=== PATIENT | female | born 1965 | race Caucasian/White ===

== ENCOUNTER → 2017-06-27 | Outpatient (CLI) | payer OTHER, MEDICAID ==
[2016-03-12 13:11] VITALS: BP 110/78
--- NOTE | 2017-06-27 12:22 | MRI ---
MRI OF THE THORACIC SPINE WITHOUT IV CONTRAST MRI OF THE LUMBAR SPINE WITHOUT IV CONTRAST CLINICAL INDICATION: Intervertebral disc disease. Mid and low back pain. TECHNIQUE: Pre-contrast sagittal T1-, T2-, and T2-w fat-saturated images, and axial T1- and T2-w imag es of the thoracic and lumbar spine. COMPARISON: None. FINDINGS: Thoracic spine: The thoracic spine demonstrates normal alignment. Vertebral bodies are normal in heig ht. There is a normal marrow signal pattern. Mild multilevel degenerative disc disease. Posterior dis c bulge worst at T7-T8 with a central protrusion resulting in moderate central stenosis without cord signal abnormality. The included paraspinal soft tissues and retroperitoneal structures are grossly n ormal. Mild neural foraminal stenosis on the left at T10-T11 secondary to left-sided facet hypertroph y. Lumbar spine: For purposes of this dictation, it is assumed that there are 5 [id number], lumbar- type vertebrae, and the most caudal fully segmented lumbar vertebra is labeled L5. The lumbar spine demonstrates normal alignment. Vertebral bodies are normal in height. There is a nor mal marrow signal pattern. Mild degenerative disc disease worst at L5-S1. The conus medullaris termin ates at a normal level and the nerve roots of the cauda equina appear normal. The included paraspinal soft tissues and retroperitoneal structures are grossly normal. Evaluation of the individual levels demonstrates: L1-2: Normal L2-3: Normal L3-4: Mild circumferential disc bulge without central stenosis. Mild right-sided neural foraminal todd nosis. L4-5: Mild circumferential disc bulge without significant central stenosis. Moderate bilateral neural foraminal stenosis. Bilateral facet signal. L5-S1: Mild disc bulge without central or foraminal stenosis. IMPRESSION: 1. Diffuse mild multilevel degenerative disc disease. Within thoracic spine this is most notable at T 7-T8 where there is a central protrusion without significant stenosis. Within the lumbar spine this i s most notable L4-5 where there is also bilateral facet signal suggesting facet arthritis. Reported By:
== END | disposition home or self-care (01) ==
LOC: RAD 09:05
PROVIDERS: ATTEND Internal Medicine
DX: M51.16 Intervertebral disc disorders with radiculopathy, lumbar region (principal); M51.34 Other intervertebral disc degeneration, thoracic region
CPT/HCPCS: 72146; 72148

== ENCOUNTER → 2017-07-19 | Outpatient (CLI) | payer OTHER, MEDICAID ==
[2016-03-12 13:11] VITALS: BP 110/78
[2017-07-19 10:20] LABS: CREATININE 0.92 mg/dL (0.55-1.02)
--- NOTE | 2017-07-19 11:28 | CT ---
CT NECK WITH IV CONTRAST CLINICAL INDICATION: Cervical lymph nodes. History of thyroid cancer. TECHNIQUE: Multiple-row detector helical CT examination of the neck with IV contrast per standard de partmental protocol.Dose reduction techniques including Automated Exposure Control (AEC) and adjustme nt of mA and kV were utlized. COMPARISON: None. FINDINGS: The aerodigestive structures are within normal limits. Specifically, the nasal cavity, nasopharynx, oral cavity, oropharynx, hypopharynx, larynx, and visualized trachea and esophagus demonstrate no mas ses or abnormal enhancement. No pathologically enlarged, necrotic, or otherwise abnormal lymph nodes. Patient's cervical lymph no leisa are normal in size and number. The parotid and submandibular glands appear within normal limits. Status post thyroidectomy. Evaluation of the visualized portions of brain parenchyma and orbits demonstrates no abnormality. The visualized paranasal sinuses are predominantly clear. The tympanomastoid cavities are unopacified. T here is normal intravascular enhancement. Limited evaluation of the lung apices demonstrates no abnormality. The visualized osseous structures are within normal limits. Following administration of intravenous contrast material, there is no abnormal enhancement. IMPRESSION: 1. No evidence of cervical lymphadenopathy or other abnormal soft tissue mass. Reported By:
== END ==
LOC: RAD 09:50
DX: R59.1 Generalized enlarged lymph nodes (principal)
CPT/HCPCS: 36415; 70491; 82565; 84520; A4222

== ENCOUNTER 2021-07-02 10:37 | Observation (INO) ==
[2021-07-02] MEDS ORDERED: ATIVAN INJ 2 MG VIAL IVP PRN (12:19)
[2021-07-02 12:42] VITALS: BMI 51.5
[2021-07-02 13:12] LABS: BASOPHILS # (AUTO) 0.1 X10^3/uL (0.0-0.1); BASOPHILS % (AUTO) 1.3 % (0.2-1.0); EOSINOPHILS # (AUTO) 0.1 x10^3/uL (0.0-0.2); EOSINOPHILS % (AUTO) 0.9 % (0.9-2.9); HEMOGLOBIN 12.7 g/dL (12.0-16.0); LYMPHOCYTES # (AUTO) 2.3 X10^3/uL (1.3-2.9); LYMPHOCYTES % (AUTO) 28.9 % (21.0-51.0); MEAN CORPUSCULAR HEMOGLOBIN 28.6 pg (27.0-34.0); MEAN CORPUSCULAR HGB CONC 32.5 g/dL (33.0-35.0); MEAN PLATELET VOLUME 7.4 fL (7.4-11.0); MONOCYTES # (AUTO) 0.6 x10^3/uL (0.3-0.8); MONOCYTES % (AUTO) 7.7 % (0.0-13.0); NEUTROPHILS # (AUTO) 4.8 x10^3/uL (2.2-4.8); NEUTROPHILS % (AUTO) 61.2 % (42.0-75.0); RED BLOOD COUNT 4.44 X10^6/uL (3.5-5.4); RED CELL DISTRIBUTION WIDTH 16.3 % (11.6-16.5); WHITE BLOOD COUNT 7.9 X10^3/uL (3.6-10.0)
[2021-07-02 13:39] LABS: ALANINE AMINOTRANSFERASE 17 Units/L (12-78); ALBUMIN 3.4 g/dL (3.4-5.0); ALKALINE PHOSPHATASE 87 Units/L (46-116); ASPARTATE AMINO TRANSFERASE 17 Units/L (15-37); BLOOD UREA NITROGEN 13 mg/dL (7-18); CALCIUM 8.5 mg/dL (8.5-10.1); CARBON DIOXIDE 29.4 mmol/L (21-32); CHLORIDE 104 mmol/L (98-107); CKMB % 0.8 % (<4); CREATINE KINASE 135 Units/L (26-192); CREATINE KINASE MB 1.1 ng/mL (0-4.0); CREATININE 0.82 mg/dL (0.55-1.02); SODIUM 140 mmol/L (136-145); TOTAL PROTEIN 7.1 g/dL (6.4-8.2); eGFR NON BLACK RACES > 60 (>60)
[2021-07-02] MEDS: NS 1,000 ML IV 1,000 ML IV SCH (13:49)
[2021-07-02] MEDS: TORADOL 30 MG VIAL IVP PRN (16:13)
[2021-07-02 16:42] LABS: BILIRUBIN,URINE NEGATIVE (NEGATIVE); BLOOD/HEMOGLOBIN,URINE NEGATIVE (NEGATIVE); GLUCOSE, URINE NEGATIVE (NEGATIVE); KETONES,URINE NEGATIVE (NEGATIVE); LEUKOCYTE ESTERASE ,URINE NEGATIVE (NEGATIVE); NITRITES,URINE NEGATIVE (NEGATIVE); PROTEIN,URINE 1+ (NEGATIVE); UROBILINOGEN,URINE NORMAL (NORMAL)
[2021-07-02 16:55] LABS: APPEARANCE,URINE CLEAR (CLEAR); COLOR,URINE YELLOW (YELLOW)
[2021-07-02 16:56] LABS: BACTERIA,URINE 1+ /HPF (NEGATIVE); RBC,URINE 0-2 /HPF (0-3); SQUAMOUS EPITHELIAL CELL,UR FEW /HPF (NEGATIVE)
--- NOTE | 2021-07-02 17:19 | MRI ---
HISTORYSLURRED SPEECH, SOB, SLEEPINESSSTUDYBRAIN W/O CONCOMPARISONCT head dated June 25, 2021.TECHNIQUEMultiplanar multi-sequence MRI of the brain was obtained utilizing standard departmental protocol. Sagittal and axial T1 weighted images were obtained. Axial T2 and flair weighted images were performed as well. Axial diffusion weighted and ADC trace mapping was performed.FINDINGSThe midline structures appear unremarkable. The evaluation of the brain parenchyma demonstrates no abnormal signal characteristics to suggest intraparenchymal mass or hemorrhage. No extra-axial fluid collections are observed. The ventricular system appears symmetric and nondilated. The CP angle is normal in its appearance without brainstem mass or evidence for acoustic neuroma. The flow voids on both T1 and T2 weighted imaging appear unremarkable. Evaluation of the diffusion weighted imaging does not demonstrate abnormal signal characteristics to suggest acute ischemic change. The extracranial structures are unremarkable.IMPRESSIONNo MRI evidence of acute intracranial pathology.Electronically signed by: ITALIA LEVIN (Jul 02, 2021 17:19:11)
[2021-07-02] MEDS: PROVENTIL NEB TX 0.083% 2.5MG/ 3ML NEB SCH ×2 (17:25→20:48)
[2021-07-02 18:43] LABS: CKMB % 0.9 % (<4); CREATINE KINASE 112 Units/L (26-192); CREATINE KINASE MB < 1.0 ng/mL (0-4.0)
[2021-07-03 00:06] LABS: CKMB % 0.9 % (<4); CREATINE KINASE 107 Units/L (26-192); CREATINE KINASE MB < 1.0 ng/mL (0-4.0)
[2021-07-03] MEDS: NS 1,000 ML IV 1,000 ML IV SCH ×2 (03:41→16:24)
[2021-07-03 05:45] LABS: BASOPHILS % (AUTO) 0.5 % (0.2-1.0); EOSINOPHILS # (AUTO) 0.1 x10^3/uL (0.0-0.2); EOSINOPHILS % (AUTO) 0.9 % (0.9-2.9); HEMOGLOBIN 12.1 g/dL (12.0-16.0); LYMPHOCYTES % (AUTO) 35.2 % (21.0-51.0); MEAN CORPUSCULAR HEMOGLOBIN 28.7 pg (27.0-34.0); MEAN CORPUSCULAR HGB CONC 32.7 g/dL (33.0-35.0); MEAN CORPUSCULAR VOLUME 87.8 fL (80.0-100.0); MEAN PLATELET VOLUME 7.3 fL (7.4-11.0); MONOCYTES # (AUTO) 0.5 x10^3/uL (0.3-0.8); MONOCYTES % (AUTO) 7.9 % (0.0-13.0); NEUTROPHILS # (AUTO) 3.2 x10^3/uL (2.2-4.8); NEUTROPHILS % (AUTO) 55.5 % (42.0-75.0); RED BLOOD COUNT 4.21 X10^6/uL (3.5-5.4); RED CELL DISTRIBUTION WIDTH 16.1 % (11.6-16.5); WHITE BLOOD COUNT 5.7 X10^3/uL (3.6-10.0)
[2021-07-03 05:47] LABS: ALANINE AMINOTRANSFERASE 14 Units/L (12-78); ALBUMIN 2.7 g/dL (3.4-5.0); ALKALINE PHOSPHATASE 74 Units/L (46-116); ASPARTATE AMINO TRANSFERASE 15 Units/L (15-37); BLOOD UREA NITROGEN 9 mg/dL (7-18); CALCIUM 7.9 mg/dL (8.5-10.1); CARBON DIOXIDE 27.8 mmol/L (21-32); CHLORIDE 107 mmol/L (98-107); COR CA(FOR HYPOALB) 8.9 mg/dL (8.5-10.1); SODIUM 142 mmol/L (136-145); eGFR NON BLACK RACES > 60 (>60)
[2021-07-03] MEDS: TORADOL 30 MG VIAL IVP PRN (07:57)
[2021-07-03] MEDS: PROVENTIL NEB TX 0.083% 2.5MG/ 3ML NEB SCH ×3 (09:25→16:50)
[2021-07-03] MEDS ORDERED: ATARAX SYRUP BTL 10MG/5ML PO PRN (11:30)
[2021-07-03] MEDS ORDERED: ULTRAM PO PRN (11:30)
[2021-07-03] MEDS ORDERED: PHENERGAN TAB 25 MG PO PRN (11:30)
--- NOTE | 2021-07-03 12:22 | RAD ---
HISTORYShortness of breathSTUDYChest AP [id number] t size is normal. Josefina are normal. Lung christensen are clear. No pleural effusions are identified. Bony thorax is unremarkable.IMPRESSIONNo significant abnormality identifiedElectronically signed by: VIKTOR BARNETT (Jul 03, 2021 12:22:17)
[2021-07-03] MEDS: CARAFATE PO SCH ×3 (13:00→21:28)
[2021-07-03] MEDS: LIORESAL PO SCH ×3 (13:00→21:29)
[2021-07-03] MEDS: REQUIP PO SCH ×2 (13:01→21:31)
[2021-07-03] MEDS: PERCOCET TAB 5/325 MG PO SCH ×2 (13:01→21:28)
[2021-07-03] MEDS: NICOTINE PATCH TD SCH (18:00)
[2021-07-03] MEDS ORDERED: REFLEX: PROVENTIL NEB & PulmiCORT NEB~ NEB SCH (21:00)
[2021-07-03] MEDS: LIPITOR TAB 40 MG PO SCH (21:29)
[2021-07-03] MEDS: PriLOSEC PO SCH (21:30)
[2021-07-03] MEDS: VALIUM PO SCH (21:30)
[2021-07-03] MEDS: DESYREL PO SCH (21:35)
[2021-07-03] MEDS: PATIENT'S HOME MEDICATION PO SCH (21:36)
[2021-07-03] MEDS: PULMICORT NEB TX 0.5 MG NEB SCH (21:38)
[2021-07-03] MEDS ORDERED: KLOR-CON PO PRN (22:34)
[2021-07-03] MEDS ORDERED: MAGNESIUM SULFATE 1 GRAM/100 mL PREMIX 1 G/100 ML BAG IV PRN (22:34)
[2021-07-03] MEDS ORDERED: POTASSIUM CHLORIDE LIQ 20 MEQ UDC PO PRN (22:34)
[2021-07-03] MEDS ORDERED: MICRO K EXTEN CAP 10 MEQ PO PRN (22:34)
[2021-07-03] MEDS ORDERED: POTASSIUM CHL 60 MEQ/NS 0.45% 500 ML IV PRN (22:34)
[2021-07-03] MEDS ORDERED: POTASSIUM CHL 40 MEQ/NS 0.45% 500 ML IV PRN (22:34)
[2021-07-04] MEDS: XOPENEX 1.25 MG/3 ML NEBULE NEB SCH ×4 (01:20→17:05)
[2021-07-04] MEDS: PERCOCET TAB 5/325 MG PO SCH ×4 (02:22→18:22)
[2021-07-04] MEDS: REQUIP PO SCH ×3 (05:28→22:00)
[2021-07-04] MEDS: CARAFATE PO SCH ×4 (05:29→20:30)
[2021-07-04] MEDS: NS 1,000 ML IV 1,000 ML IV SCH ×3 (05:29→20:29)
[2021-07-04] MEDS: SYNTHROID 150 mcg TAB PO SCH (06:38)
[2021-07-04 06:51] LABS: BASOPHILS % (AUTO) 0.7 % (0.2-1.0); EOSINOPHILS # (AUTO) 0.1 x10^3/uL (0.0-0.2); EOSINOPHILS % (AUTO) 1.3 % (0.9-2.9); HEMATOCRIT 37.5 % (36.0-47.0); LYMPHOCYTES # (AUTO) 1.9 X10^3/uL (1.3-2.9); LYMPHOCYTES % (AUTO) 35.4 % (21.0-51.0); MEAN CORPUSCULAR HEMOGLOBIN 28.3 pg (27.0-34.0); MEAN CORPUSCULAR HGB CONC 32.1 g/dL (33.0-35.0); MEAN PLATELET VOLUME 7.6 fL (7.4-11.0); MONOCYTES # (AUTO) 0.5 x10^3/uL (0.3-0.8); MONOCYTES % (AUTO) 8.8 % (0.0-13.0); NEUTROPHILS # (AUTO) 2.9 x10^3/uL (2.2-4.8); NEUTROPHILS % (AUTO) 53.8 % (42.0-75.0); RED BLOOD COUNT 4.26 X10^6/uL (3.5-5.4); RED CELL DISTRIBUTION WIDTH 15.7 % (11.6-16.5); WHITE BLOOD COUNT 5.5 X10^3/uL (3.6-10.0)
[2021-07-04 06:57] LABS: ALANINE AMINOTRANSFERASE 13 Units/L (12-78); ALBUMIN 2.7 g/dL (3.4-5.0); ALKALINE PHOSPHATASE 72 Units/L (46-116); ASPARTATE AMINO TRANSFERASE 12 Units/L (15-37); BLOOD UREA NITROGEN 4 mg/dL (7-18); CALCIUM 7.9 mg/dL (8.5-10.1); CARBON DIOXIDE 30.3 mmol/L (21-32); CHLORIDE 111 mmol/L (98-107); COR CA(FOR HYPOALB) 8.9 mg/dL (8.5-10.1); CREATININE 0.62 mg/dL (0.55-1.02); SODIUM 146 mmol/L (136-145); eGFR NON BLACK RACES > 60 (>60)
[2021-07-04] MEDS: PULMICORT NEB TX 0.5 MG NEB SCH ×2 (08:05→20:45)
[2021-07-04] MEDS: DEMADEX PO SCH (09:12)
[2021-07-04] MEDS: FOLIC ACID TAB 1 MG PO SCH (09:13)
[2021-07-04] MEDS: K-DUR TAB 20 MEQ PO SCH (09:13)
[2021-07-04] MEDS: HYDROCHLOROTHIAZIDE 25 MG TAB PO SCH (09:13)
[2021-07-04] MEDS: NICOTINE PATCH TD SCH (09:14)
[2021-07-04] MEDS: LINZESS PO SCH (09:14)
[2021-07-04] MEDS: SINGULAIR TAB 10 MG PO SCH (09:15)
[2021-07-04] MEDS: PriLOSEC PO SCH ×2 (09:15→20:29)
[2021-07-04] MEDS: TOPROL XL PO SCH (09:15)
[2021-07-04] MEDS: PATIENT'S HOME MEDICATION PO SCH ×7 (09:15→20:33)
[2021-07-04] MEDS: LIORESAL PO SCH ×4 (09:16→20:31)
[2021-07-04] MEDS: ZyrTEC TAB 10 MG PO SCH (09:16)
[2021-07-04] MEDS: VALIUM PO SCH ×2 (09:16→20:32)
[2021-07-04] MEDS: VASOTEC TAB 10 MG PO SCH (09:16)
[2021-07-04] MEDS: ESTRACE PO SCH (09:17)
[2021-07-04] MEDS: K-RIDER 10 MEQ/NS 100 ML 10 MEQ/100 ML BAG IV PRN (09:19)
[2021-07-04] MEDS: K-DUR TAB 20 MEQ PO PRN ×2 (09:19→20:32)
[2021-07-04] MEDS ORDERED: PATIENT'S HOME MEDICATION PO PRN (09:50)
[2021-07-04] MEDS ORDERED: IMODIUM CAP 2 MG PO PRN (14:02)
[2021-07-04] MEDS: DESYREL PO SCH ×2 (20:30→21:00)
[2021-07-04] MEDS: LIPITOR TAB 40 MG PO SCH (20:31)
[2021-07-05] MEDS: XOPENEX 1.25 MG/3 ML NEBULE NEB SCH ×4 (00:57→18:30)
[2021-07-05] MEDS: PERCOCET TAB 5/325 MG PO SCH ×4 (03:08→18:03)
[2021-07-05] MEDS: REQUIP PO SCH ×3 (05:46→22:15)
[2021-07-05] MEDS: CARAFATE PO SCH ×4 (05:46→20:28)
[2021-07-05] MEDS: SYNTHROID 150 mcg TAB PO SCH (05:47)
[2021-07-05 06:30] LABS: BASOPHILS % (AUTO) 0.5 % (0.2-1.0); EOSINOPHILS # (AUTO) 0.1 x10^3/uL (0.0-0.2); EOSINOPHILS % (AUTO) 1.6 % (0.9-2.9); HEMATOCRIT 39.9 % (36.0-47.0); LYMPHOCYTES # (AUTO) 2.2 X10^3/uL (1.3-2.9); LYMPHOCYTES % (AUTO) 31.6 % (21.0-51.0); MEAN CORPUSCULAR HEMOGLOBIN 28.8 pg (27.0-34.0); MEAN CORPUSCULAR HGB CONC 32.7 g/dL (33.0-35.0); MEAN PLATELET VOLUME 7.3 fL (7.4-11.0); MONOCYTES # (AUTO) 0.6 x10^3/uL (0.3-0.8); MONOCYTES % (AUTO) 8.9 % (0.0-13.0); NEUTROPHILS # (AUTO) 4.1 x10^3/uL (2.2-4.8); NEUTROPHILS % (AUTO) 57.4 % (42.0-75.0); RED BLOOD COUNT 4.54 X10^6/uL (3.5-5.4); RED CELL DISTRIBUTION WIDTH 16.1 % (11.6-16.5); WHITE BLOOD COUNT 7.1 X10^3/uL (3.6-10.0)
[2021-07-05 06:45] LABS: ALANINE AMINOTRANSFERASE 16 Units/L (12-78); ALBUMIN 3.1 g/dL (3.4-5.0); ALKALINE PHOSPHATASE 82 Units/L (46-116); ASPARTATE AMINO TRANSFERASE 13 Units/L (15-37); BLOOD UREA NITROGEN 9 mg/dL (7-18); CALCIUM 8.8 mg/dL (8.5-10.1); CARBON DIOXIDE 32.2 mmol/L (21-32); CHLORIDE 105 mmol/L (98-107); COR CA(FOR HYPOALB) 9.5 mg/dL (8.5-10.1); SODIUM 145 mmol/L (136-145); TOTAL PROTEIN 6.9 g/dL (6.4-8.2); eGFR NON BLACK RACES > 60 (>60)
[2021-07-05] MEDS: DEMADEX PO SCH (08:54)
[2021-07-05] MEDS: ESTRACE PO SCH (08:55)
[2021-07-05] MEDS: K-DUR TAB 20 MEQ PO SCH (08:56)
[2021-07-05] MEDS: HYDROCHLOROTHIAZIDE 25 MG TAB PO SCH (08:56)
[2021-07-05] MEDS: FOLIC ACID TAB 1 MG PO SCH (08:56)
[2021-07-05] MEDS: LINZESS PO SCH (08:56)
[2021-07-05] MEDS: NICOTINE PATCH TD SCH (08:57)
[2021-07-05] MEDS: PATIENT'S HOME MEDICATION PO SCH ×7 (08:57→20:29)
[2021-07-05] MEDS: LIORESAL PO SCH ×4 (08:57→20:27)
[2021-07-05] MEDS: VALIUM PO SCH ×2 (08:58→20:28)
[2021-07-05] MEDS: TOPROL XL PO SCH (08:58)
[2021-07-05] MEDS: PriLOSEC PO SCH ×2 (08:58→20:28)
[2021-07-05] MEDS: VASOTEC TAB 10 MG PO SCH (08:58)
[2021-07-05] MEDS: SINGULAIR TAB 10 MG PO SCH (08:58)
[2021-07-05] MEDS: K-DUR TAB 20 MEQ PO PRN (08:59)
[2021-07-05] MEDS: ZyrTEC TAB 10 MG PO SCH (08:59)
[2021-07-05] MEDS: PULMICORT NEB TX 0.5 MG NEB SCH ×2 (09:15→20:20)
[2021-07-05] MEDS: VENTOLIN or PROAIR HFA IN SCH (09:31)
[2021-07-05] MEDS: K-RIDER 10 MEQ/NS 100 ML 10 MEQ/100 ML BAG IV PRN ×2 (11:12→13:56)
[2021-07-05] MEDS: NS 1,000 ML IV 1,000 ML IV SCH ×2 (11:13→22:16)
[2021-07-05] MEDS: DESYREL PO SCH (20:28)
[2021-07-05] MEDS: LIPITOR TAB 40 MG PO SCH (20:28)
[2021-07-06] MEDS: XOPENEX 1.25 MG/3 ML NEBULE NEB SCH ×3 (00:25→11:45)
[2021-07-06] MEDS: VENTOLIN or PROAIR HFA IN SCH (00:47)
[2021-07-06] MEDS: NS 1,000 ML IV 1,000 ML IV SCH ×2 (01:27→13:57)
[2021-07-06] MEDS: PERCOCET TAB 5/325 MG PO SCH ×3 (01:28→12:19)
[2021-07-06] MEDS: REQUIP PO SCH ×2 (06:02→13:03)
[2021-07-06] MEDS: CARAFATE PO SCH ×3 (06:02→16:34)
[2021-07-06] MEDS: SYNTHROID 150 mcg TAB PO SCH (06:03)
[2021-07-06 07:00] LABS: BASOPHILS % (AUTO) 0.5 % (0.2-1.0); EOSINOPHILS # (AUTO) 0.1 x10^3/uL (0.0-0.2); EOSINOPHILS % (AUTO) 1.8 % (0.9-2.9); HEMATOCRIT 38.9 % (36.0-47.0); HEMOGLOBIN 12.4 g/dL (12.0-16.0); LYMPHOCYTES # (AUTO) 2.6 X10^3/uL (1.3-2.9); LYMPHOCYTES % (AUTO) 38.1 % (21.0-51.0); MEAN CORPUSCULAR HEMOGLOBIN 28.3 pg (27.0-34.0); MEAN CORPUSCULAR HGB CONC 31.9 g/dL (33.0-35.0); MEAN CORPUSCULAR VOLUME 88.6 fL (80.0-100.0); MEAN PLATELET VOLUME 7.3 fL (7.4-11.0); MONOCYTES # (AUTO) 0.6 x10^3/uL (0.3-0.8); MONOCYTES % (AUTO) 8.1 % (0.0-13.0); NEUTROPHILS # (AUTO) 3.6 x10^3/uL (2.2-4.8); NEUTROPHILS % (AUTO) 51.5 % (42.0-75.0); RED BLOOD COUNT 4.39 X10^6/uL (3.5-5.4); RED CELL DISTRIBUTION WIDTH 15.9 % (11.6-16.5); WHITE BLOOD COUNT 6.9 X10^3/uL (3.6-10.0)
[2021-07-06 07:37] LABS: ALANINE AMINOTRANSFERASE 14 Units/L (12-78); ALBUMIN 2.9 g/dL (3.4-5.0); ALKALINE PHOSPHATASE 78 Units/L (46-116); ASPARTATE AMINO TRANSFERASE 15 Units/L (15-37); BLOOD UREA NITROGEN 11 mg/dL (7-18); CALCIUM 8.5 mg/dL (8.5-10.1); CARBON DIOXIDE 29.5 mmol/L (21-32); CHLORIDE 106 mmol/L (98-107); COR CA(FOR HYPOALB) 9.4 mg/dL (8.5-10.1); CREATININE 0.76 mg/dL (0.55-1.02); SODIUM 145 mmol/L (136-145); TOTAL PROTEIN 6.6 g/dL (6.4-8.2); eGFR NON BLACK RACES > 60 (>60)
[2021-07-06] MEDS: PULMICORT NEB TX 0.5 MG NEB SCH (08:07)
[2021-07-06] MEDS: DEMADEX PO SCH (08:31)
[2021-07-06] MEDS: ESTRACE PO SCH (08:32)
[2021-07-06] MEDS: FOLIC ACID TAB 1 MG PO SCH (08:33)
[2021-07-06] MEDS: HYDROCHLOROTHIAZIDE 25 MG TAB PO SCH (08:34)
[2021-07-06] MEDS: NICOTINE PATCH TD SCH (08:34)
[2021-07-06] MEDS: K-DUR TAB 20 MEQ PO SCH (08:34)
[2021-07-06] MEDS: PATIENT'S HOME MEDICATION PO SCH ×5 (08:35→16:34)
[2021-07-06] MEDS: SINGULAIR TAB 10 MG PO SCH (08:36)
[2021-07-06] MEDS: TOPROL XL PO SCH (08:37)
[2021-07-06] MEDS: VALIUM PO SCH (08:37)
[2021-07-06] MEDS: PriLOSEC PO SCH (08:37)
[2021-07-06] MEDS: VASOTEC TAB 10 MG PO SCH (08:38)
[2021-07-06] MEDS: ZyrTEC TAB 10 MG PO SCH (08:38)
[2021-07-06] MEDS: LINZESS PO SCH (08:39)
[2021-07-06] MEDS: LIORESAL PO SCH ×3 (08:39→16:34)
--- NOTE | 2021-07-06 08:53 | DR.UPDATE ---
H&P Update History and Physical Update: History and Physical reviewed and patient examined. Changes noted: NO Prescription drug monitoring program results: PDMP reviewed and no concerns identified H&P Reviewed: Yes Patient was examined?: Yes
--- NOTE | 2021-07-06 13:23 | PCM.PROG ---
Progress Note - Progress Note for Day of Date of Exam: 07/03/21 - Subjective Subjective: WAS ADMITTED OBSERVATION STATUS FOR SEIZURE LIKE ACTIVITY, SPEECH DIFFICULTIES, AND GENERALIZED WEAKNESS. SHE ALSO REPORTED UPPER BACK AND NECK PAIN. HER PMH INCLUDES: HTN, COPD, OSTEOPOROSIS, DDD, ANXIETY, THYROID CANCER, CHOLECYSTECTOMY, HYSTERECTOMY, AND THYROIDECTOMY. IN THE OFFICE, PATIENTS SATURATIONS WERE 88%. AFTER BEING PLACED ON NASAL CANNULA AT 2 LPM, SATURATIONS INCREASED TO 98%. SHE APPARENTLY HAD ANOTHER EPISODE THROUGHOUT THE NIGHT. NURSING STAFF REPORTED THAT PATIENT WAS SHAKING HEAD UP AND DOWN, HAVING TREMORS TO THE ARMS, AND DIFFICULTY SPEAKING. EPISODE RESOLVED AFTER SEVERAL MINUTES AND SHE WAS ABLE TO AMBULATE TO BATHROOM AND BACK TO BED. HER VITALS THIS MORNING ARE: 98.7-68-27-90%-166/83. SHE IS CURRENTLY UTILIZING OXYGEN VIA NC AT 2 LPM. LABS WERE OBTAINED. WBC 5.7, HGB 12.1, HCT 37.0, SODIUM 142, POTASSIUM 3.3, BUN 9, CREATININE 0.60, CALCIUM 89, CALCIUM 7.9, MAGNESIUM 2.0, TOTAL PROTEIN 6.0, ALBUMIN 2.7. CARDIAC ENZYMES HAVE BEEN WITHIN NORMAL LIMITS. HER UDS ON ADMISSION WAS POSITIVE FOR MEARIJUANA AND BENZODIAZEPINES. BRAIN MRI ON ADMISSION REVEALED: No MRI evidence of acute intracranial pathology. SHE IS CURRENTLY RECEIVING NORMAL SALINE AT 75 ML/HR, XOPENEX NEBS Q6H, ALBUTEROL INHALER BID, PULMICORT NEBS BID, THE POTASSIUM AND MAGNESIUM PROTOCOLS, TORADOL 30MG IV Q8H PRN PAIN, AND HER HOME MEDICATIONS WERE RESUMED. WE WILL CONTINUE WITH CURRENT PLAN OF CARE TODAY. OTHERWISE, WE PLAN TO FOLLOW UP WITH AM LABS AND CONTINUE TO MONITOR. TIME SPENT ON CLINICAL ASSESSMENT, REVIEWING LABS AND IMAGING, DECISION MAKING, AND DOCUMENTATION GREATER THAN 45 MINUTES. - Past Medical Family Social History Past Med/Fam/Surg Hx: No changes since H&P Allergies: Allergies duloxetine [From Cymbalta] Allergy (Verified 06/25/21 18:20) erythromycin base Allergy (Verified 06/25/21 18:20) Sulfa (Sulfonamide Antibiotics) [SULFA] Allergy (Verified 06/25/21 18:20) NSAIDS (Non-Steroidal Anti-Inflamma Adverse Reaction (Mild, Verified 06/25/21 18:20) - Review of Systems ROS: No change since H&P - Vital Signs and I&O's Vital Signs: Temperature 97.4 F Pulse Rate 65 Respiratory Rate 16 Blood Pressure [Left Arm] 155/87 Blood Pressure 126/68 O2 Sat by Pulse Oximetry 87 Intake and Output: Intake & Output 07/04/21 07/05/21 07/06/21 07/07/21 11:59 11:59 11:59 11:59 Intake Total 2570 / 2570 2860 / 2860 2619 / 2619 Output Total 1475 / 1475 Balance 1095 / 1095 2860 / 2860 2619 / 2619 - Physical Exam Oriented: Normal, Person Eyes: Normal Ear: Normal Nose: Normal Throat: Normal Respiratory: Generalized, Diminished Cardiovascular: Normal : Normal Auscultation: Bowel Sounds: Normal Palpation: Normal Tenderness: Normal Skin: Normal Musculoskeletal: Normal Psychiatric: Normal Mood Description: Calm Affect: Normal Speech Pattern: Clear - Laboratory and Diagnostics Result Diagrams: 07/06/21 05:40 07/06/21 05:40 Labs: Laboratory WBC 6.9 X10^3/uL (3.6-10.0) 07/06/21 05:40 RBC 4.39 X10^6/uL (3.5-5.4) 07/06/21 05:40 Hgb 12.4 g/dL (12.0-16.0) 07/06/21 05:40 Hct 38.9 % (36.0-47.0) 07/06/21 05:40 MCV 88.6 fL (80.0-100.0) 07/06/21 05:40 MCH 28.3 pg (27.0-34.0) 07/06/21 05:40 MCHC 31.9 g/dL (33.0-35.0) L 07/06/21 05:40 RDW 15.9 % (11.6-16.5) 07/06/21 05:40 Plt Count 200 X10^3/uL (150.0-450.0) 07/06/21 05:40 MPV 7.3 fL (7.4-11.0) L 07/06/21 05:40 Neut % (Auto) 51.5 % (42.0-75.0) 07/06/21 05:40 Lymph % (Auto) 38.1 % (21.0-51.0) 07/06/21 05:40 Bladen % (Auto) 8.1 % (0.0-13.0) 07/06/21 05:40 Eos % (Auto) 1.8 % (0.9-2.9) 07/06/21 05:40 Baso % (Auto) 0.5 % (0.2-1.0) 07/06/21 05:40 Neut # (Auto) 3.6 x10^3/uL (2.2-4.8) 07/06/21 05:40 Lymph # (Auto) 2.6 X10^3/uL (1.3-2.9) 07/06/21 05:40 Bladen # (Auto) 0.6 x10^3/uL (0.3-0.8) 07/06/21 05:40 Eos # (Auto) 0.1 x10^3/uL (0.0-0.2) 07/06/21 05:40 Baso # (Auto) 0.0 X10^3/uL (0.0-0.1) 07/06/21 05:40 Absolute Nucleated RBC 0.1 /100WBC 07/06/21 05:40 Sodium 145 mmol/L (136-145) 07/06/21 05:40 Corrected Sodium TNP 07/06/21 05:40 Potassium 3.3 mmol/L (3.5-5.1) L 07/06/21 05:40 Chloride 106 mmol/L (98-107) 07/06/21 05:40 Carbon Dioxide 29.5 mmol/L (21-32) 07/06/21 05:40 BUN 11 mg/dL (7-18) 07/06/21 05:40 Creatinine 0.76 mg/dL (0.55-1.02) 07/06/21 05:40 Est GFR (MDRD) Af Amer > 60 (>60) 07/06/21 05:40 Est GFR (MDRD) Non-Af > 60 (>60) 07/06/21 05:40 Glucose 97 mg/dL (65-99) 07/06/21 05:40 Calcium 8.5 mg/dL (8.5-10.1) 07/06/21 05:40 Corrected Calcium 9.4 mg/dL (8.5-10.1) 07/06/21 05:40 Magnesium 2.0 mg/dL (1.7-2.9) 07/04/21 05:34 Total Bilirubin 0.20 mg/dL (0.2-1.0) 07/06/21 05:40 AST 15 Units/L (15-37) 07/06/21 05:40 ALT 14 Units/L (12-78) 07/06/21 05:40 Alkaline Phosphatase 78 Units/L (46-116) 07/06/21 05:40 Creatine Kinase 107 Units/L (26-192) 07/02/21 23:40 CK-MB (CK-2) < 1.0 ng/mL (0-4.0) 07/02/21 23:40 CK/CKMB % Calc 0.9 % (<4) 07/02/21 23:40 Troponin I High Sens 5.7 ng/L (4.0-60.0) 07/02/21 23:40 Total Protein 6.6 g/dL (6.4-8.2) 07/06/21 05:40 Albumin 2.9 g/dL (3.4-5.0) L 07/06/21 05:40 Globulin 3.7 g/dL (2.5-4.5) 07/06/21 05:40 Albumin/Globulin Ratio 0.8 Ratio (1.1-2.1) L 07/06/21 05:40 Specimen Type Random urine 07/02/21 16:00 Urine Color Yellow (YELLOW) 07/02/21 16:00 Urine Appearance Clear (CLEAR) 07/02/21 16:00 Urine pH 5.0 (5.0 - 8.0) 07/02/21 16:00 Ur Specific [place] 1.020 (1.000-1.030) 07/02/21 16:00 Urine Protein 1+ (NEGATIVE) 07/02/21 16:00 Urine Glucose (UA) Negative (NEGATIVE) 07/02/21 16:00 Urine Ketones Negative (NEGATIVE) 07/02/21 16:00 Urine Blood Negative (NEGATIVE) 07/02/21 16:00 Urine Nitrite Negative (NEGATIVE) 07/02/21 16:00 Urine Bilirubin Negative (NEGATIVE) 07/02/21 16:00 Urine Urobilinogen Normal (NORMAL) 07/02/21 16:00 Ur Leukocyte Esterase Negative (NEGATIVE) 07/02/21 16:00 Urine RBC 0-2 /HPF (0-3) 07/02/21 16:00 Urine WBC 0-2 /HPF (0-5) 07/02/21 16:00 Ur Squamous Epith Cells Few /HPF (NEGATIVE) 07/02/21 16:00 Urine Bacteria 1+ /HPF (NEGATIVE) 07/02/21 16:00 Ur Culture Indicated? No/not indicated 07/02/21 16:00 Urine Opiates Screen Negative (NEG=<300) 07/02/21 16:00 Urine Methadone Screen Negative (NEG=<300) 07/02/21 16:00 Ur Barbiturates Screen Negative (NEG=<200) 07/02/21 16:00 Ur Phencyclidine Scrn Negative (NEG=<25) 07/02/21 16:00 Ur Amphetamines Screen Negative (NEG=<1000) 07/02/21 16:00 U Benzodiazepines Scrn Positive (NEG=<200) A 07/02/21 16:00 Urine Cocaine Screen Negative (NEG=<300) 07/02/21 16:00 U Marijuana (THC) Screen Positive (NEG=<50) A 07/02/21 16:00 SARS-CoV-2 (PCR) Negative (NEGATIVE) 07/02/21 14:48 Influenza Type A (PCR) Negative (NEGATIVE) 07/02/21 14:48 Influenza Type B (PCR) Negative (NEGATIVE) 07/02/21 14:48 RSV (PCR) Negative (NEGATIVE) 07/02/21 14:48 - Plan (1) Seizure-like activity Status: Acute Plan: SUPPLEMENTAL OXYGEN, NORMAL SALINE AT 75 ML/HR, XOPENEX NEBS Q6H, ALBUTEROL INHALER BID, PULMICORT NEBS BID, THE POTASSIUM AND MAGNESIUM PROTOCOLS, TORADOL 30MG IV Q8H PRN PAIN, AND HER HOME MEDICATIONS WERE RESUMED. (2) Episodic ataxia with slurred speech Status: Acute (3) Generalized weakness Status: Acute (4) COPD exacerbation Status: Acute
[2021-07-06] MEDS: K-DUR TAB 20 MEQ PO PRN (17:38)
[2021-07-06 18:12] VITALS: BP 127/90
== END 2021-07-06 18:30 | disposition home or self-care (01) ==
LOC: ICU
PROVIDERS: ADMIT Internal Medicine; ATTEND Internal Medicine